=== PATIENT | male | born 1995 | race Asian ===

== ENCOUNTER 2022-05-27 11:45 | Emergency (ER) | payer OTHER ==
[2022-05-27] MEDS ORDERED: DIPHENHYDRAMINE 50 MG/ML VIAL ONE (12:28)
[2022-05-27] MEDS ORDERED: NA CHLORIDE 0.9% 1,000 ML ONE (12:29)
[2022-05-27] MEDS ORDERED: FAMOTIDINE 20 MG/2 ML VIAL IV ONE (12:29)
[2022-05-27] MEDS ORDERED: METHYLPREDNISOLONE 40 MG INJ ONE (12:29)
[2022-05-27] MEDS ORDERED: ALBUTEROL 2.5 MG/3 ML NEB SOL ONE (12:31)
--- NOTE | 2022-05-27 13:59 | ER ---
Nurse's Notes [facility] Name: Cullen Messer Age: 27 yrs Sex: Male : 1995 Arrival Date: 05/27/2022 Time: 11:47 Bed 11 Private MD: Diagnosis: Allergy status to other drugs, medicaments and biological substances status Presentation: 05/27 12:03 Chief complaint: Patient states: allergic reaction that started Monday with a rash. mb8 Rash is spreading and is now full body. Denies any CP or SOB. Was taking Clindamycin and Minocycline. Stopped those Monday and was given benadryl and prednisone which patient does not think is helping. Coronavirus screen: At this time, the client does not indicate any symptoms associated with coronavirus-19. Ebola Screen: Patient negative for fever greater than or equal to 101.5 degrees Fahrenheit, and additional compatible Ebola Virus Disease symptoms Patient denies exposure to infectious person. Patient denies travel to an Ebola-affected area in the 21 days before illness onset. No symptoms or risks identified at this time. Onset: The symptoms/episode began/occurred gradually. Anaphylaxis evaluation, no signs or symptoms of anaphylaxis were noted. Initial Sepsis Screen: Does the patient meet any 2 criteria? No. Patient's initial sepsis screen is negative. Does the patient have a suspected source of infection? No. Patient's initial sepsis screen is negative. Risk Assessment: Do you want to hurt yourself or someone else? Patient reports no desire to harm self or others. Onset of symptoms was May 23, 2022. 12:03 Method Of Arrival: Law Enforcement: [place] [employer] mb8 12:03 Acuity: BUD 3 mb8 Triage Assessment: 12:07 General: Appears in no apparent distress. comfortable, Behavior is calm, cooperative, mb8 appropriate for age. Pain: Denies pain. Historical: - Allergies: 12:06 No Known Allergies; mb8 - PMHx: 12:06 None; mb8 - PSHx: 12:06 None; mb8 - Social history:: Smoking status: Patient denies any tobacco usage or history of. Screenin:07 Abuse screen: Denies threats or abuse. Denies injuries from another. Nutritional mb8 screening: No deficits noted. Tuberculosis screening: No symptoms or risk factors identified. Fall Risk None identified. Assessment: 12:07 Respiratory: No deficits noted. Airway is patent Respiratory effort is even, unlabored, mb8 Breath sounds are clear bilaterally. Derm: Rash noted that is urticaria. 13:02 Reassessment: Patient and/or family updated on plan of care and expected duration. Pain mb8 level reassessed. Patient is alert, oriented x 3, equal unlabored respirations, skin warm/dry/pink. Vital Signs: 12:03 BP 134 / 76; Pulse 93; Resp 16; Temp 97.7; Pulse Ox 99% ; Pain 0/10; mb8 13:01 BP 122 / 67; Pulse 77; Resp 16; Pulse Ox 100% ; Pain 0/10; mb8 13:38 BP 118 / 59; Pulse 80; Resp 18; Pulse Ox 99% ; Pain 0/10; mb8 ED Course: 11:47 Patient arrived in ED. eb 11:48 Marino Bal PA is PHCP. cp 11:48 Yaw Canchola MD is Attending Physician. cp 11:51 Jacob Henson RN is Primary Nurse. mb8 12:06 Triage completed. mb8 12:07 Arm band placed on. mb8 12:08 Patient has correct armband on for positive identification. mb8 12:08 No provider procedures requiring assistance completed. mb8 12:28 Inserted saline lock: 20 gauge in right antecubital area, using aseptic technique. mb8 14:14 IV discontinued, intact, bleeding controlled, No redness/swelling at site. Pressure mb8 dressing applied. Administered Medications: 12:30 Drug: Albuterol 2.5 mg Route: Inhalation; mb8 13:37 Follow up: Response: No adverse reaction mb8 12:30 Drug: Pepcid (famotidine) 20 mg Route: IVP; Site: right antecubital; mb8 13:37 Follow up: Response: No adverse reaction mb8 12:30 Drug: SOLU-Medrol (methylPrednisoLONE) 80 mg Route: IVP; Site: right antecubital; mb8 13:36 Follow up: Response: No adverse reaction mb8 12:30 Drug: NS 0.9% 1000 ml Route: IV; Rate: 1 bolus; Site: right antecubital; mb8 13:36 Follow up: Response: No adverse reaction; IV Status: Completed infusion mb8 12:41 Drug: Benadryl (diphenhydrAMINE) 25 mg Route: IVP; Site: right antecubital; mb8 13:37 Follow up: Response: No adverse reaction mb8 Medication: 12:07 VIS not applicable for this client. mb8 Outcome: 13:58 Discharge ordered by . shaun 14:14 Discharged to Law Enforcement mb8 14:14 Condition: stable 14:14 Discharge instructions given to patient, Instructed on discharge instructions, follow up and referral plans. medication usage, Demonstrated understanding of instructions, follow-up care, medications, Prescriptions given X 2. 14:15 Patient left the ED. mb8 Signatures: Marino Bal PA PA cp Botello, Elizabeth eb Bates, Michael RN RN mb8
--- NOTE | 2022-05-27 13:59 | EDPHYS ---
Physician Documentation [facility] Name: Cullen Messer Age: 27 yrs Sex: Male : 1995 Arrival Date: 05/27/2022 Time: 11:47 Bed 11 Private MD: ED Physician Yaw Canchola HPI: 05/27 12:20 This 27 yrs old Male presents to ER via Law Enforcement with complaints of cp Allergic Reaction. 12:20 The patient presents with rash, that is diffuse. Onset: The symptoms/episode cp began/occurred 4 day(s) ago. Associated signs and symptoms: Pertinent positives: shortness of breath, Pertinent negatives: abdominal pain, chest pain, dysphagia, fever, nausea, vomiting. Possible causes: antibiotics, Clindamycin and/or Minocycline. 12:20 Patient reports he was taking oral Minocycline and Clindamycin for about 7 days prior cp to noticing rash. Started on oral prednisone and Benadryl this past Monday. Historical: - Allergies: 12:06 No Known Allergies; mb8 - PMHx: 12:06 None; mb8 - PSHx: 12:06 None; mb8 - Social history:: Smoking status: Patient denies any tobacco usage or history of. ROS: 12:25 Constitutional: Negative for fever. cp 12:25 Skin: Positive for rash, diffusely. 12:25 Eyes: Negative for injury, pain, redness, and discharge. cp 12:25 ENT: Negative for drainage from ear(s), ear pain, sore throat, difficulty swallowing, difficulty handling secretions. 12:25 Cardiovascular: Negative for chest pain, edema, palpitations. 12:25 Respiratory: Positive for shortness of breath, at rest. Negative for cough, wheezing. 12:25 Abdomen/GI: Negative for abdominal pain, nausea, vomiting, and diarrhea. 12:25 Back: Negative for pain at rest, pain with movement. 12:25 Neuro: Negative for altered mental status, headache, weakness. 12:25 All other systems are negative. Exam: 12:30 Constitutional: The patient appears in no acute distress, alert, awake, non-toxic, well cp developed, well nourished. 12:30 Eyes: Periorbital structures: appear normal, Conjunctiva: normal, no exudate, no cp injection, Sclera: no appreciated abnormality, Lids and lashes: appear normal, bilaterally. 12:30 ENT: External ear(s): are unremarkable, Nose: is normal, Mouth: Lips: moist, Oral mucosa: pink and intact, moist, Posterior pharynx: Airway: no evidence of obstruction, patent, swelling, is not appreciated, erythema, is not appreciated, exudate, is not appreciated. 12:30 Neck: ROM/movement: is normal, is supple, without pain, no range of motions limitations. 12:30 Cardiovascular: Rate: normal, Rhythm: regular. 12:30 Respiratory: the patient does not display signs of respiratory distress, Respirations: normal, no use of accessory muscles, no retractions, labored breathing, is not present, Breath sounds: are clear throughout, no decreased breath sounds, no stridor, no wheezing. 12:30 Abdomen/GI: Exam negative for discomfort, distension, guarding, Inspection: abdomen appears normal. 12:30 Skin: rash can be described as erythematous, hives, and is diffusely located. Vital Signs: 12:03 BP 134 / 76; Pulse 93; Resp 16; Temp 97.7; Pulse Ox 99% ; Pain 0/10; mb8 13:01 BP 122 / 67; Pulse 77; Resp 16; Pulse Ox 100% ; Pain 0/10; mb8 13:38 BP 118 / 59; Pulse 80; Resp 18; Pulse Ox 99% ; Pain 0/10; mb8 MDM: 12:00 Patient medically screened. cp 13:58 Data reviewed: vital signs, nurses notes. cp 13:58 Differential diagnosis: anaphylaxis, angioedema, Gomez's Robert, TENs. Counseling: I cp had a detailed discussion with the patient and/or guardian regarding: the historical points, exam findings, and any diagnostic results supporting the discharge/admit diagnosis, to return to the emergency department if symptoms worsen or persist or if there are any questions or concerns that arise at home. Response to treatment: the patient's symptoms have mildly improved after treatment, and as a result, I will discharge patient. 05/27 12:14 Order name: IV; Complete Time: 12:42 cp Administered Medications: 12:30 Drug: Albuterol 2.5 mg Route: Inhalation; mb8 13:37 Follow up: Response: No adverse reaction mb8 12:30 Drug: Pepcid (famotidine) 20 mg Route: IVP; Site: right antecubital; mb8 13:37 Follow up: Response: No adverse reaction mb8 12:30 Drug: SOLU-Medrol (methylPrednisoLONE) 80 mg Route: IVP; Site: right antecubital; mb8 13:36 Follow up: Response: No adverse reaction mb8 12:30 Drug: NS 0.9% 1000 ml Route: IV; Rate: 1 bolus; Site: right antecubital; mb8 13:36 Follow up: Response: No adverse reaction; IV Status: Completed infusion mb8 12:41 Drug: Benadryl (diphenhydrAMINE) 25 mg Route: IVP; Site: right antecubital; mb8 13:37 Follow up: Response: No adverse reaction mb8 Disposition Summary: 05/27/22 13:58 Discharge Ordered Location: Home cp Problem: an ongoing problem cp Symptoms: have improved cp Condition: Stable cp Diagnosis - Allergy status to other drugs, medicaments and biological substances status cp Followup: cp - With: Private Physician - When: 1 - 2 days - Reason: Recheck today's complaints Discharge Instructions: - Discharge Summary Sheet cp - Drug Allergy cp Forms: - Medication Reconciliation Form cp - Thank You Letter cp - Antibiotic Education cp - Prescription Opioid Use cp Prescriptions: - Pepcid 20 mg Oral Tablet - take 1 tablet by ORAL route every 12 hours for 10 days; 20 tablet; Refills: 0, cp Product Selection Permitted - Zyrtec 10 mg Oral Tablet - take 1 tablet by ORAL route once daily As needed; 20 tablet; Refills: 0, cp Product Selection Permitted Signatures: Marino Bal PA PA cp Bates, Michael RN RN mb8 Corrections: (The following items were deleted from the chart) 05/28 13:45 08:26 Skin: Positive for rash, diffusely, cp cp 13:45 08:26 Constitutional: Negative for fever, cp cp
[2022-05-27 15:28] VITALS: TEMP 97.7
[2022-05-27 15:33] VITALS: BP 118/59; O2SAT 99
== END 2022-05-27 14:15 | disposition home or self-care (01) ==
LOC: ER 11:45
DX: R21 Rash and other nonspecific skin eruption (principal); Z88.8 Allergy status to other drugs, medicaments and biological substances
CPT/HCPCS: 96361; 96374; 96375; 99284; J1200; J2920; J7030